=== PATIENT | female | born 1990 | race Caucasian/White ===

== ENCOUNTER 2017-11-04 17:09 | Emergency (ER) | payer OTHER ==
[~2017-11-04] VITALS: Ht 167.6 cm; Wt 72.6 kg
[2017-11-04 17:24] VITALS: BP 125/85
--- NOTE | 2017-11-04 17:32 | ED ANIMAL BITE/WOUND CHECK ---
History of Present Illness General Chief Complaint: Animal/Insect Bite Stated Complaint: "BIT BY A DOG AT A HOME VISIT" Source: patient Exam Limitations: no limitations Vital Signs & Intake/Output Vital Signs & Intake/Output Vital Signs Date Time Temp Pulse Resp B/P B/P Pulse O2 O2 Flow FiO2 Mean Ox Delivery Rate 11/04 1724 98.3 66 16 125/85 98 Room Air ED Intake and Output 11/05 0000 11/04 1200 Intake Total 0 Output Total 0 Balance 0 Intake, Oral 0 Output, Urine 0 Patient 160 lb Weight Allergies Coded Allergies: No Known Allergies (11/04/17) Reconcile Medications Amoxicillin/Potassium Clav (Augmentin 875-125 Tablet) 875 MG-125 MG TABLET 1 TAB PO BID DOG BITE Triage Note: 27F WAS WORKING AND DOING A HOME VISIT AND BIT BY A CLIENT'S DOG. UNKNOWN IF DOG IS UTD ON VACCINES. Triage Nurses Notes Reviewed? yes Onset: Abrupt Duration: hour(s): (3), constant, continues in ED Timing: single episode today Injury Environment: work Is Injury an Animal Bite? Yes Animal Type: dog Context of Animal Attack: entered animal's domain Appearance of Animal: appeared well Animal Immunization Status: unknown Observation/Capture: animal known/obs x10 days Severity of Attack: bitten Severity: mild, moderate Severity Numbers: 5 No Modifying Factors: none : No Patient currently breastfeeds: No HPI: 27-year-old female here for evaluation of a dog bite to her right foot. The bite occurred while she was at work. The dog is her client's dog. The dog appeared well. She reports mild pain in her foot over the dog bite. Unknown last tetanus shot. She is able to walk. No numbness or tingling. Past History Travel History Traveled to [place] past 21 day No Medical History Any Pertinent Medical History? see below for history Surgical History Surgical History: non-contributory Psychosocial History What is your primary language Romanian Tobacco Use: Never used Family History Hx Contributory? No Review of Systems Review of Systems Constitutional: Reports: no symptoms. EENTM: Reports: no symptoms. Respiratory: Reports: no symptoms. Cardiovascular: Reports: no symptoms. GI: Reports: no symptoms. Genitourinary: Reports: no symptoms. Musculoskeletal: Reports: see HPI. Skin: Reports: see HPI (bite puncture wound). Neurological/Psychological: Reports: no symptoms. Hematologic/Endocrine: Reports: no symptoms. Immunologic/Allergic: Reports: no symptoms. All Other Systems: Reviewed and Negative Physical Exam Physical Exam General Appearance: well developed/nourished, no apparent distress, alert, awake Head: atraumatic, normal appearance Eyes: Bilateral: normal appearance, EOMI. Ears, Nose, Throat: hearing grossly normal Neck: normal inspection, supple, full range of motion Respiratory: no respiratory distress Peripheral Pulses: 2+ dorsalis pedis (R), 2+ dorsalis pedis (L) Back: normal inspection, normal range of motion Extremities: normal range of motion, there are multiple superficial puncture wounds over the right foot over the dorsum. No foreign bodies no active bleeding no swelling no bruising full range motion intact neurovascular supply intact patient is able to walk and bear weight Neurologic/Psych: no motor/sensory deficits, awake, alert, oriented x 3, normal gait Skin: intact, normal color, warm/dry Progress Differential Diagnosis: abscess, cellulitis, joint infection, tenosysnovitis, dog bite, foreign body, rabies exposure Plan of Care: Current Medications Sig/Shalini Start time Last Medication Dose Stop Time Status Admin Tetanus/Diphtheria 0.5 ML ONCE ONE 11/04 1744 AC 11/04 Toxoids Adsorbed 11/04 1745 1739 (Decavac) She is here with a dog bite to the right foot. She has superficial puncture wounds. These were cleaned with Betadine sterile dressing applied. Tetanus updated. Patient will be covered with Augmentin. Advised her to have her client's dog tested and ruled out for rabies. Discussed return precautions including signs of infection. Follow-up with her primary care doctor patient agrees the plan Departure Departure Disposition: HOME OR SELF CARE Condition: Stable Clinical Impression Primary Impression: Dog bite Qualifiers: Encounter type: initial encounter Qualified Code: W54.0XXA - Bitten by dog, initial encounter Additional Instructions: Keep area clean and dry. Take antibiotics as directed for the full course. Change dressing once daily. [place] for signs of infection like redness swelling discharge or pain. Find out about the dog's rabies status. Monitor symptoms return with any concerns. Departure Forms: Customer Survey General Discharge Information Prescriptions: Current Visit Scripts Amoxicillin/Potassium Clav (Augmentin 875-125 Tablet) 1 TAB PO BID #20 TAB
[2017-11-04] MEDS ORDERED: AUGMENTIN 875-1 EACH PO (17:48)
== END 2017-11-04 17:57 ==
LOC: ERH 17:09
DX: S91.351A Open bite, right foot, initial encounter (principal); W54.0XXA Bitten by dog, initial encounter
CPT/HCPCS: 90471; 90714